=== PATIENT | female | born 1970 | race Asian ===

== ENCOUNTER 2019-05-30 17:12 | Emergency (ER) | payer MEDICAID, OTHER ==
[~2019-05-30] VITALS: Ht 172.7 cm; Wt 72.7 kg
[2019-05-30] MEDS ORDERED: METO25 PO (17:52)
[2019-05-30] MEDS ORDERED: ISOS10TA16 PO (17:52)
[2019-05-30] MEDS ORDERED: CHOL100018 PO (17:52)
[2019-05-30] MEDS ORDERED: DIVA125T32 PO (17:52)
[2019-05-30] MEDS ORDERED: METF-445 PO (17:52)
[2019-05-30] MEDS ORDERED: RISP.5 PO (17:52)
[2019-05-30] MEDS ORDERED: BENA10TA77 PO (17:52)
[2019-05-30] MEDS ORDERED: OMEG-135 PO (17:52)
[2019-05-30] MEDS ORDERED: ASPI-1182 PO (17:52)
[2019-05-30] MEDS ORDERED: INSU100V SQ (17:52)
[2019-05-30 17:56] LABS: GLUCOSE,POINT OF CARE 118 MG/DL (70-110)
[2019-05-30] MEDS ORDERED: HYDROCODONE/ACETAMINOPHEN 5-325 MG TABLET PO ONE (18:30)
[2019-05-30 21:24] VITALS: BP 127/69
== END 2019-05-30 21:32 | disposition home or self-care (01) ==
LOC: EMS 17:15
DX: S62.617A Displaced fracture of proximal phalanx of left little finger, initial encounter for closed fracture (principal); S93.492A Sprain of other ligament of left ankle, initial encounter; E11.9 Type 2 diabetes mellitus without complications; I10 Essential (primary) hypertension; Z79.899 Other long term (current) drug therapy; Z79.4 Long term (current) use of insulin; Z88.1 Allergy status to other antibiotic agents; Z91.013 Allergy to seafood; X50.1XXA Overexertion from prolonged static or awkward postures, initial encounter; Y93.89 Activity, other specified; Y92.89 Other specified places as the place of occurrence of the external cause; Y99.8 Other external cause status